=== PATIENT | female | born 2000 | race Caucasian/White ===

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

== ENCOUNTER 2024-05-28 10:43 | Emergency (ER) | payer BC ==
[~2024-05-28] VITALS: Ht 154.9 cm; Wt 65.9 kg
[2024-05-28 10:51] VITALS: TEMP 98.2
[2024-05-28 13:43] VITALS: BP 105/72
[2024-05-28 15:24] VITALS: PULSE 96
== END 2024-05-28 15:24 | disposition home or self-care (01) ==
LOC: COL.ER 10:43
DX: H10.9 Unspecified conjunctivitis (principal); G47.30 Sleep apnea, unspecified